=== PATIENT | female | born 1985 | race Native Hawaiian/Other Pacific Islander ===

== ENCOUNTER 2017-04-04 09:50 | Emergency (ER) | payer OTHER ==
[2017-04-04 10:15] VITALS: O2SAT 98
--- NOTE | 2017-04-04 12:11 | ED PDOC ---
HPI: General Adult Time Seen by Provider: 04/04/17 10:18 Chief Complaint (Nursing): Headache History Per: Patient Additional Complaint(s): Pt. states yesterday at 1140 yesterday she was struck in the head a with a rubber ball while at work. States she did not lose consciousness but had a persistent headache. She was seen in [facility] yesterday and told to take Tylenol. Today headache worsened prompting ED visit. Denies new injury, neck pain, numbness, N/V, neck pain, anticoagulant use. Past Medical History Reviewed: Historical Data, Nursing Documentation, Vital Signs Vital Signs: Last Vital Signs Temp Pulse Resp BP Pulse Ox 98 04/04/17 12:12 - Family History Family History: States: No Known Family Hx - Allergies Allergies/Adverse Reactions: Allergies Allergy/AdvReac Type Severity Reaction Status Date / Time No Known Allergies Allergy Verified 04/04/17 10:15 Review of Systems ROS Statement: Except As Marked, All Systems Reviewed And Found Negative Neurological: Positive for: Headache Physical Exam - Physical Exam Appears: Positive for: Well, Non-toxic, No Acute Distress Head Exam: Positive for: NORMAL INSPECTION, NORMOCEPHALIC. Negative for: ATRAUMATIC Skin: Positive for: Normal Color, Warm. Negative for: Rash Eye Exam: Positive for: Normal appearance, EOMI, PERRL. Negative for: Nystagmus , Periorbital swelling, Periorbital tenderness, Conjunctival injection ENT: Positive for: Normal ENT Inspection, TM Is/Are (no hemotympanum b/l) Back: Positive for: Normal Inspection. Negative for: L CVA Tenderness, R CVA Tenderness, Vertebral Tenderness (including cervical spine) Extremity: Positive for: Normal ROM Neurologic/Psych: Positive for: Alert, Oriented, Gait (steady, unassisted). Negative for: Aphasia, Facial Droop - ECG O2 Sat by Pulse Oximetry: 98 - CT Scan/US CT head w/o contrast Other Rad Studies (CT/US): Read By Radiologist (no ICH) - Progress ED Course And Treament: Pt. offered analgesics but refused. CT head w/o contrast ordered. Disposition - Clinical Impression Clinical Impression: Head injury - Patient ED Disposition Is Patient to be Admitted: No - Disposition Disposition: Routine/Home Disposition Time: 13:15 Condition: STABLE Instructions: Head Injury (ED) Forms: [place] ([place])
--- NOTE | 2017-04-04 12:55 | CT ---
PROCEDURE: CT HEAD WITHOUT CONTRAST. HISTORY: trauma COMPARISON: None available. TECHNIQUE: Axial computed tomography images were obtained through the head/brain without intravenous contrast. Radiation dose: Total exam DLP = 981.84 MGy-cm. This CT exam was performed using one or more of the following dose reduction techniques: Automated exposure control, adjustment of the mA and/or kV according to patient size, and/or use of iterative reconstruction technique. FINDINGS: HEMORRHAGE: No intracranial hemorrhage. BRAIN: No mass effect or edema. No atrophy or chronic microvascular ischemic changes.Incidental finding(s): John cisterna magna common normal variant VENTRICLES: Unremarkable. No hydrocephalus. CALVARIUM: Unremarkable. PARANASAL SINUSES: Unremarkable as visualized. No significant inflammatory changes. MASTOID AIR CELLS: Unremarkable as visualized. No inflammatory changes. OTHER FINDINGS: None. IMPRESSION: Macro correct noNormal CT of the Head.
== END 2017-04-04 13:27 | disposition home or self-care (01) ==
LOC: H.ER 09:50
DX: S09.90XA Unspecified injury of head, initial encounter (principal); W22.8XXA Striking against or struck by other objects, initial encounter; Y99.0 Civilian activity done for income or pay